=== PATIENT | female | born 1955 | race Caucasian/White ===

== ENCOUNTER → 2017-04-12 | Day surgery (SDC) | payer OTHER ==
[~2017-04-12] VITALS: Ht 157.5 cm; Wt 65.0 kg
[~2017-04-12] MED LIST: 0.9% Sodium Chloride 1,000 ML IV ONE; 0.9% Sodium Chloride 1,000 ML IV PRN; BECLOMETHASONE PO; BUDE3CAP PO; CALC-786 PO; CETI10CA PO; CEVI30CA7 PO; DEXT1DRO8 BOTH_EYES; GABA-502 PO; INSLIS SUBQ; INSU100V7 SUBQ; METF750T2 PO; METO25TA6 PO; OMEG-38 PO; OMEP20TA24 PO; OXYC5CAP4 PO; PRD5T PO; SULF1TAB35 PO; Sodium Chloride LOK Flush 10 mL Syringe IV PRN; TACR1CAP8 PO; VALA1000 PO; ZOF8 PO; fentaNYL-PF 50 mCg/mL 2 mL Inj IVPUSH PRN
[2017-04-12 15:30] VITALS: BP 154/73; PULSE 67; RESP 16; O2SAT 100
[2017-04-12 16:34] VITALS: BP 109/66; PULSE 77; RESP 14; O2SAT 97
[2017-04-12 16:44] VITALS: BP 121/66; PULSE 76; RESP 16; O2SAT 99
[2017-04-12 16:54] VITALS: BP 139/71; PULSE 70; RESP 16; O2SAT 96
--- NOTE | 2017-04-12 16:56 | ENDO ---
[address] [address] ENDOSCOPY PROCEDURE PATIENT: RADHA JACOBSON : 1955 MR#: [id number] ADMIT: 04/12/2017 JOB ID: [id number] DATE OF SERVICE: 04/12/2017 PRIMARY PROVIDER: Eduar Harrison MD PROCEDURE: 1. Esophagogastroduodenoscopy with biopsy. 2. Colonoscopy with biopsies. INDICATIONS: A 61-year-old female with a history of multiple myeloma treated by way of autologous stem-cell transplantation. She has had jbijw-nfwznx-nxpa disease and remains on 7.5 mg of prednisone daily. She has intermittent diarrhea but denies any chronic diarrhea at the moment. Repeat endoscopic evaluation is requested. EQUIPMENT: GIF Q 180 and a PCF H 180 AL. SEDATION: 4 mg Versed and 100 mcg fentanyl. COMPLICATIONS: None identified. BOWEL PREPARATION: Fair, adequate exam. PROCEDURE INFORMATION: After the risks and benefits were explained, written and verbal informed consent was obtained. The patient was brought into the endoscopy suite and placed in the left lateral decubitus position. Sedation was achieved as above, the scope introduced into the mouth through the bite block, and advanced to the second portion of the duodenum. The scope was slowly withdrawn to carefully examine the mucosa for any defects or lesions. Retroflexed views were accomplished in the stomach. The stomach was decompressed. The scope removed from the patient who tolerated the procedure well. The patient was turned around and digital rectal examination accomplished. Moderate internal hemorrhoids were appreciated. No mass lesions. The scope was introduced into the rectum and advanced to the cecum as identified by the appendiceal orifice and ileocecal valve. The terminal ileum was briefly accessed, the scope was slowly withdrawn to carefully examine the mucosa for any defects or lesions. Retroflexed views were accomplished in the rectum. The colon was decompressed. The scope removed from the patient who tolerated the procedure well. FINDINGS: 1. Duodenum: The patient had a tortuous duodenum but no significant mucosal pathology appreciated. Random biopsies were taken from D2 for histologic characterization. 2. Stomach: No ulcers, no mass lesions. No outlet obstruction. Minimal nonspecific diffuse gastropathy. Retroflexed views of the LES were unremarkable. Random gastric biopsies were taken for exclusion of ytane-ifhhuc-xizo disease. 3. Esophagus: The squamocolumnar junction generally correlated with the top of the gastric folds. The GEJ was at about 35 cm from the incisors. However, there was evidence of an element of erosive esophagitis LA grade A and then right at the GE junction on the cardia side was some inflamed-appearing mucosa. This area was targeted for biopsy to better classify this histologically. In the proximal esophagus, there was some adherent off-white plaque-like debris that we at 1st thought might be Lucero. A brushing was acquired but after we submitted this, I somewhat suspected this is going to be some retained dissolved pill debris. This was able to fairly easily wash off of the proximal esophagus mucosa with the abrasiveness of the scope and the scope wash. 4. Terminal ileum: This appeared visually normal. 5. Colon: The patient had a rather diffuse but mild gastropathy throughout characterized by some mild erythematous-appearing mucosa. Random biopsies were therefore taken from both the right and left colon and submitted for histopathologic analysis and again for exclusion of ctpro-nctvme-unzg disease. I did not see any significant polyps or mass lesions throughout. Retroflexed views from within the rectum disclosed moderate internal hemorrhoids. No mass lesions appreciated. ENDOSCOPIC DIAGNOSES: 1. Gastropathy. 2. Subtle sliding hiatal hernia with gastroesophageal junction inflammation. 3. Possible mild proximal esophageal candidiasis versus pill debris. 4. Mild diffuse colopathy. 5. Hemorrhoids. RECOMMENDATIONS: 1. Await SAUL wet prep. If yeast is confirmed, then a 21-day course of fluconazole would be appropriate. The patient is encouraged to contact our office tomorrow for these results. 2. Await histopathology. Follow up on results in Oncology Clinic with Dr. Pike. 3. Repeat EGD and colonoscopy at Dr. Pike's discretion.
--- NOTE | 2017-04-15 15:35 | PATH ---
SURGICAL PATHOLOGY Attending Physician:Dominique Garcia CASE STATUS: Signed Out PATIENT NAME: RADHA JACOBSON PID: [id number] : 1955 DATE COLLECTED:04/12/2017 00:00 SPECIMEN: 1: Duodenum, Biopsy 2: Gastric, Biopsy 3: Esophagus, Biopsy 4: Colon, Biopsy 5: Colon, Biopsy CLINICAL HISTORY: *PLEAST RULE OUT GRAFT VS HOST ON ALL BIOPSIES* 1). DUODENUM BIOPSY 2). GASTRIC BIOPSY RULE OUT H PYLORI 3). GASTRO-ESOPHAGEAL JUNCTION BIOPSY 4). RIGHT COLON BIOPSY 5). LEFT COLON BIOPSY FINAL DIAGNOSIS: 1. Duodenum, Biopsy: Duodenal mucosa with no significant diagnostic abnormality. Negative for intraepithelial lymphocytosis, villous blunting, dysplasia and malignancy. 2. Stomach, Biopsy: Body-type mucosa with no diagnostic abnormality. No evidence of Helicobacter infection. Negative for intestinal metaplasia. Negative for dysplasia and malignancy. 3. Gastroesophageal Junction, Biopsy: Squamocolumnar junctional mucosa with mild active inflammation. A PAS stain is negative for fungal organisms. Negative for intestinal metaplasia. Negative for dysplasia and malignancy. 4-5. Right Colon, Left Colon, Biopsies: Colonic mucosa with rare apoptosis present. See comment. Negative for features of lymphocytic or collagenous colitis. Negative for features of chronic colitis or ischemia. Negative for dysplasia and malignancy. ICD10: R10.9 NOTE: Rare apoptotic figures are identified in the right and left colon biopsies. Because of the important clinical consequences, this will be sent to [facility] Department of Pathology for their expert opinion, and the results reported as an addendum. GROSS DESCRIPTION: The specimen is received in five formalin filled containers labeled with the patient's name. 1). The specimen is labeled "duodenum" and consists of 2 portions of tissue which aggregate to 0.2 x 0.2 x 0.2 CM. The specimen is entirely submitted in cassette 1A. 2). The specimen is labeled "random gastric" and consists of 2 portions of tissue which aggregate to 0.2 x 0.2 x 0.2 CM. The specimen is entirely submitted in cassette 2A. 3). The specimen is labeled "GEJ" and consists of a 0.3 x 0.3 x 0.3 CM portion of tissue which is entirely submitted in cassette 3A. 4). The specimen is labeled "right colon" and consists of a 0.2 x 0.2 x 0.2 CM portion of tissue which is entirely submitted in cassette 4A. 5). The specimen is labeled "left colon" and consists of 2 portions of tissue which aggregate to 0.2 x 0.2 x 0.2 CM. The specimen is entirely submitted in cassette 5A. 04/13/2017DC MICRO DESCRIPTION: Part 3: A PAS stain was performed to evaluate for fungal organisms and is negative. A control stain showed appropriate reactivity. ICD-9 CODES: CPT CODES: 1: 86165 2: 33266 3: 32830, 84749 4: 46230 5: 80327 Electronically Signed Out Maria L Spaulding MD [facility] Pathology [facility] [address], [place] [address] Technical component performed at [facility], [facility] [address], [place], [address]
== END | disposition home or self-care (01) ==
LOC: END 00:36
PROVIDERS: ATTEND Internal Medicine Gastroenterology
DX: K31.9 Disease of stomach and duodenum, unspecified (principal); K44.9 Diaphragmatic hernia without obstruction or gangrene; K64.9 Unspecified hemorrhoids; R19.7 Diarrhea, unspecified; R11.0 Nausea; D89.812 Acute on chronic graft-versus-host disease; Z79.52 Long term (current) use of systemic steroids